=== PATIENT | female | born 1970 | race Caucasian/White ===

== ENCOUNTER 2022-11-08 11:05 | Emergency (ER) | payer MEDICAID, OTHER ==
[~2022-11-08] VITALS: Ht 167.6 cm; Wt 87.0 kg
[2022-11-08] MEDS ORDERED: IOHEXOL-350 100 ML BOTTLE ONE (11:27)
[2022-11-08 12:00] LABS: BASOPHILS % 0.5 % (0.0-2.0); HEMATOCRIT. 33.1 % (36.0-48.0); HEMOGLOBIN. 11.3 g/dL (12.0-16.0); LYMPHOCYTES % 27.9 % (20.0-50.0); MEAN CORPUSCULAR HEMOGLOBIN 29.3 pg (28.0-32.0); MEAN CORPUSCULAR VOLUME 85.6 fL (81.0-99.0); MEAN PLATELET VOLUME 9.3 fl (7.4-10.4); MONOCYTES % 9.1 % (2.0-8.0); NEUTROPHILS % 61.5 % (40.0-76.0); PLATELET 266 x1000/uL (130-400); RED BLOOD CELL COUNT 3.87 mill/uL (4.2-5.4); RED CELL DISTRIBUTION WIDTH 16.3 % (11.6-14.6)
[2022-11-08] MEDS ORDERED: ASPIRIN 325MG EC TABLET PO ONE (12:00)
[2022-11-08 12:08] LABS: INR 1.2; PROTHROMBIN TIME 12.6 sec (9.6-11.0)
[2022-11-08 12:13] LABS: HCG SCREEN NEGATIVE
[2022-11-08 12:15] LABS: CHLORIDE 109 mEq/L (98-107)
[2022-11-08 12:36] LABS: ETHANOL BLOOD < 10 mg/dL
[2022-11-08 17:05] VITALS: BP 111/51
== END 2022-11-08 18:01 | disposition short-term general hospital (02) ==
LOC: ER 11:05 → CANBEDREQ 13:05 → ER 18:01
DX: I63.9 Cerebral infarction, unspecified (principal); F17.200 Nicotine dependence, unspecified, uncomplicated; J45.909 Unspecified asthma, uncomplicated; Z20.822 Contact with and (suspected) exposure to COVID-19; Z88.6 Allergy status to analgesic agent
CPT/HCPCS: 36415; 70450; 70496; 70498; 71045; 80053; 80320; 82962; 84484; 84703; 85025; 85610; 87426; 93005; 99291; C9803; Q9967; G0480